=== PATIENT | female | born 1950 | race African-American/Black ===

== ENCOUNTER 2018-06-24 07:28 | Emergency (ER) | payer OTHER ==
[~2018-06-24] VITALS: Ht 154.9 cm; Wt 66.7 kg
--- NOTE | 2018-06-24 07:40 | NUR ---
at bedside to see and examine patient.
[2018-06-24] MEDS ORDERED: CARBAMIDE PEROXIDE OTIC DROP 15 ML BOTTLE ONE (07:44)
[2018-06-24] MEDS ORDERED: CARBAMIDE PEROXIDE OTIC DROP 15 ML BOTTLE OT ONE (07:45)
--- NOTE | 2018-06-24 08:12 | NUR ---
Hafsa garcia in ED - 06/24/18 at 0813 by LUNA left earwax removed, with lots of debri removed.
--- NOTE | 2018-06-24 08:13 | NUR ---
left ear cleaned with lots of earwax removed.
--- NOTE | 2018-06-24 08:23 | NUR ---
Dcd intructions and prescriptions provided to patient. Pt. left room ambulatory, [id number].
== END 2018-06-24 08:26 | disposition home or self-care (01) ==
LOC: ER 07:28
DX: H61.22 Impacted cerumen, left ear (principal); Z88.5 Allergy status to narcotic agent
CPT/HCPCS: A4663